=== PATIENT | female | born 1950 | race Caucasian/White ===

== ENCOUNTER → 2020-08-17 13:18 | Outpatient (CLI) | payer MEDICARE, SELFPAY ==
--- NOTE | ~2020-08-17 | MM_ITS ---
EXAMINATION: MM screening [facility] BI w ryan HISTORY: Screening mammogram TECHNIQUE: Craniocaudal and mediolateral oblique 3-D tomosynthesis images were obtained and synthetic 2-D images were generated. CAD analysis was submitted and interpreted. COMPARISON: 03/05/2019, [id number] 2017, 09/30/2015 bilateral digital screening mammogram examinations BREAST PARENCHYMAL COMPOSITION: There are scattered areas of fibroglandular density. FINDINGS: Probable bilateral .intramammary lymph nodes There is no evidence of suspicious mass, calci fication, or architectural distortion to suggest malignancy in either breast. There has been no suspi cious interval change. IMPRESSION: 1. No mammographic evidence of malignancy. 2. Recommend routine screening mammography in one year. BI-RADS Category 2: Benign finding(s). Reviewed, dictated and finalized at location A. [employer]
== END ==
PROVIDERS: PCP Internal Medicine; Visit Provider Obstetrics & Gynecology
DX: Z12.31 Encounter for screening mammogram for malignant neoplasm of breast (principal)
CPT/HCPCS: 77063; 77067

== ENCOUNTER 2021-12-07 01:32 | Day surgery (SDC) | payer MEDICARE, SELFPAY ==
[2021-11-20 15:07] VITALS: BMI 25.5
[2021-12-07 09:56] VITALS: BP 137/75; PULSE 92; RESP 18; TEMP 36.4; O2SAT 97; BMI 26.6
[2021-12-07] MEDS: LACTATED RINGERS 1,000 ML 150 ML IV CONT (09:59)
--- NOTE | 2021-12-07 10:02 | PM.HPGS ---
History of Present Illness History of Present Illness Consent: Risks, benefits, and alternatives have been discussed and questions answered. Patient agrees to proceed with procedure. Chief complaint: positive cologuard Narrative: Remedios Villanueva is a 71 year old female who was referred for colon cancer screening. Her last colonoscopy was about 11 years ago. Review of Systems Review of Systems: All systems reviewed & are unremarkable except as noted in HPI and below PMFSH Past Medical History Medical History Asthma Colon cancer screening Diabetes type 2, controlled Essential (primary) hypertension Hypothyroidism Hypothyroidism (acquired) IGT (impaired glucose tolerance) Osteoporosis Tumor of thyroid Surgical History Surgical History H/O section Family History Family History Mother Patient's mother is in good health Sibling Family history of diabetes mellitus in first degree relative Family history of malignant neoplasm of esophagus Father Patient's father is Other Hypertension Social History Social History Smoking status: Never smoker Second hand tobacco smoke exposure: No Alcohol intake: current Alcohol use details: Social Substance use: never Substance use type: does not use Living arrangements: with family Spiritual care concerns: No Meds Home Medications and Allergies Home Medications Medication Instructions Recorded Confirmed Type omega-3 fatty acids 1,000 mg 1,000 mg PO BID 08/23/20 12/07/21 History capsule (Fish Oil Concentrate) calcium carbonate 500 mg calcium 500 mg PO BID 03/09/21 12/07/21 History (1,250 mg) tablet cholecalciferol (vitamin D3) 50 See Rx Instructions .Route 06/16/21 12/07/21 Rx mcg (2,000 unit) capsule .COMPLEX #90 caps metformin 500 mg tablet See Rx Instructions .Route 06/19/21 12/07/21 Rx .COMPLEX #90 tabs hydrochlorothiazide 25 mg tablet 25 mg PO DAILY #90 tabs 08/11/21 12/07/21 Rx valsartan 320 mg tablet 320 mg PO DAILY #90 tabs 09/18/21 12/07/21 Rx sodium sul 1.479 gram-potas ch See Rx Instructions PO PER PKG DIR 11/15/21 12/07/21 Rx 0.188 gram-magnes sul 0.225 gram #24 tabs tablet (Sutab) amlodipine 5 mg tablet See Rx Instructions .Route 12/05/21 12/07/21 Rx .COMPLEX #90 tabs levothyroxine 88 mcg tablet See Rx Instructions .Route 12/05/21 12/07/21 Rx .COMPLEX #90 tabs pravastatin 40 mg tablet See Rx Instructions .Route 12/05/21 12/07/21 Rx .COMPLEX #90 tabs alprazolam 1 mg tablet 1 mg PO TID PRN anxiety #60 tabs 12/06/21 12/07/21 Rx Allergies Allergy/AdvReac Type Severity Reaction Status Date / Time No Known Allergies Verified 12/07/21 09:54 Vital Signs Vital Signs - 24 hr 12/07/21 09:56 Temperature 36.4 C Pulse Rate 92 Respiratory Rate 18 Blood Pressure 137/75 Pulse Oximetry 97 Oxygen Delivery Room Air Exam Resp: Auscultation: clear to auscultation bilaterally Cardio: Rate: regular rate Rhythm: regular rhythm GI: GI Palp: Yes Soft to palpation and No Tenderness to palpation present (GI) Assessment and Plan Assessment and plan (1) Colon cancer screening: Code(s): Z12.11 - Encounter for screening for malignant neoplasm of colon Status: Acute Assessment and Plan: Colonoscopy with possible biopsy or polypectomy or cautery or injection of substances.
[2021-12-07 10:10] LABS: Glucose Point of Care 118 mg/dl (65-105)
--- NOTE | 2021-12-07 10:17 | WPDANESEPPF ---
Anes - Initial Pre Proc Eval Procedure: Operation Date: 12/07/21 11:00 Proposed Procedures p Colonoscopy - Roge Ritchie MD Date/Time: 12/07/21 10:17 Surgeon: Roge Ritchie MD Pre Op Diagnosis: positive cologuard Patient Data Age: 71 Gender: F Height: 1.55 m Weight: 63.8 kg Last Vital Signs Temp 36.4 C 12/07/21 09:56 Pulse 92 12/07/21 09:56 Resp 18 12/07/21 09:56 BP 137/75 12/07/21 09:56 Pulse Ox 97 12/07/21 09:56 O2 Del Method Room Air 12/07/21 09:56 Allergies Allergy/AdvReac Type Severity Reaction Status Date / Time No Known Allergies Verified 12/07/21 09:54 Home Medications Medication Instructions Recorded Confirmed Type omega-3 fatty acids 1,000 mg 1,000 mg PO BID 08/23/20 12/07/21 History capsule (Fish Oil Concentrate) calcium carbonate 500 mg calcium 500 mg PO BID 03/09/21 12/07/21 History (1,250 mg) tablet cholecalciferol (vitamin D3) 50 See Rx Instructions .Route 06/16/21 12/07/21 Rx mcg (2,000 unit) capsule .COMPLEX #90 caps metformin 500 mg tablet See Rx Instructions .Route 06/19/21 12/07/21 Rx .COMPLEX #90 tabs hydrochlorothiazide 25 mg tablet 25 mg PO DAILY #90 tabs 08/11/21 12/07/21 Rx valsartan 320 mg tablet 320 mg PO DAILY #90 tabs 09/18/21 12/07/21 Rx sodium sul 1.479 gram-potas ch See Rx Instructions PO PER PKG DIR 11/15/21 12/07/21 Rx 0.188 gram-magnes sul 0.225 gram #24 tabs tablet (Sutab) amlodipine 5 mg tablet See Rx Instructions .Route 12/05/21 12/07/21 Rx .COMPLEX #90 tabs levothyroxine 88 mcg tablet See Rx Instructions .Route 12/05/21 12/07/21 Rx .COMPLEX #90 tabs pravastatin 40 mg tablet See Rx Instructions .Route 12/05/21 12/07/21 Rx .COMPLEX #90 tabs alprazolam 1 mg tablet 1 mg PO TID PRN anxiety #60 tabs 12/06/21 12/07/21 Rx Laboratory Tests 12/07/21 10:08 POC Capillary Glucose 118 mg/dl H mg/dl (65-105) Patient hx anesthesia problems: none Family hx anesthesia problems: none Results Review: All pre-operative results and documents have been reviewed as part of the pre-operative evaluation. REPLACED BY [facility] Past Medical History Medical History Asthma Colon cancer screening Diabetes type 2, controlled Essential (primary) hypertension Hypothyroidism Hypothyroidism (acquired) IGT (impaired glucose tolerance) Osteoporosis Tumor of thyroid Surgical History Surgical History H/O section Family History Family History Mother Patient's mother is in good health Sibling Family history of diabetes mellitus in first degree relative Family history of malignant neoplasm of esophagus Father Patient's father is Other Hypertension Social History Social History Smoking status: Never smoker Second hand tobacco smoke exposure: No Alcohol intake: current Alcohol use details: Social Substance use: never Substance use type: does not use Living arrangements: with family Spiritual care concerns: No Anes - Eval Final PreProcedure Day of Procedure 12/07/21 10:17 Patient weight: overweight Heart: regular rate and rhythm Lungs: clear to auscultation Airway: Mallampati scale class II Neurological: alert and oriented Last oral intake: >/= 8 hours ASA classification: III Emergent: no Anesthetic plan: proceed Anesthesia type and monitoring: general GIVS and standard monitoring Results Review: All pre-operative results and documents have been reviewed as part of the pre-operative evaluation. Informed Consent: The patient's anesthetic plan and its attendant risks and benefits were discussed with the patient/family/POA. Questions were solicited and answers provided to the satisfaction of the patient/family/POA.
[2021-12-07 11:00] VITALS: BP 89/56; PULSE 73; RESP 18; O2SAT 97
[2021-12-07 11:10] VITALS: BP 107/57; PULSE 79; RESP 18; O2SAT 98
[2021-12-07 11:20] VITALS: BP 114/73; PULSE 74; RESP 19; O2SAT 99
== END 2021-12-07 11:31 | disposition home or self-care (01) ==
PROVIDERS: PCP Internal Medicine; Visit Provider Internal Medicine Gastroenterology
PROC: 0DJD8ZZ Inspection of Lower Intestinal Tract, Via Natural or Artificial Opening Endoscopic (ICD-10-PCS; CPT 45378; principal; 2021-12-07 11:00)
DX: Z12.11 Encounter for screening for malignant neoplasm of colon (principal); E89.0 Postprocedural hypothyroidism; K57.30 Diverticulosis of large intestine without perforation or abscess without bleeding; R19.5 Other fecal abnormalities; Z79.84 Long term (current) use of oral hypoglycemic drugs; J45.909 Unspecified asthma, uncomplicated; E11.9 Type 2 diabetes mellitus without complications; I10 Essential (primary) hypertension; M81.0 Age-related osteoporosis without current pathological fracture
CPT/HCPCS: G0121; 82948; J2704; J7120

== ENCOUNTER → 2022-04-03 11:59 | Outpatient (CLI) | payer MEDICARE, SELFPAY ==
--- NOTE | ~2022-04-03 | DEXA_ITS ---
Bone Density Report Name: LEDA FITCH Age: 72 Sex: Female Ethnicity: White Date of : 1950 Indication: postmenopausal; screening for osteoporosis; Referring Provider: López Moran Study: Bone densitometry was performed. Exam Date: April 03, 2022 Accession number: [id number] Bone Density: Region BMD T-score Z-score Classification AP Spine (L1-L4) 1.194 1.3 3.5 Normal Femoral Neck (Left) 0.657 -1.7 0.1 Osteopenia Total Hip (Left) 0.926 -0.1 1.4 Normal Femoral Neck (Right) 0.721 -1.2 0.6 Osteopenia Total Hip (Right) 0.900 -0.3 1.2 Normal Total Hip Mean 0.913 -0.2 1.3 Normal World Health Organization criteria for BMD impression classify patients as: Normal (T-score at or above -1.0), Osteopenia (T-score between -1.0 and -2.5), or Osteoporosis (T-score at or below -2.5). 10-year Fracture Risk(1): Major Osteoporotic Fracture 10% Hip Fracture 1.7% Reported Risk Factors: [place] (), Neck BMD=0.657, BMI=27.5 (1) FRAX(R) Version 3.08. Fracture probability calculated for an untreated patient. Fracture probability may be lower if the patient has received treatment. Previous Exams: Region Exam Age BMD T-score BMD Change BMD Change Date g/cm2 vs Baseline vs Previous AP Spine(L1-L4) 04/03/2022 72 1.194 1.3 0.282* 0.215* 06/09/2013 63 0.979 -0.6 0.067* 0.067* 04/25/2011 61 0.912 -1.2 0.000 0.000 12/13/2008 58 0.912 -1.2 Total Hip(Left) 04/03/2022 72 0.926 -0.1 0.027 0.003 06/09/2013 63 0.924 -0.2 0.024 0.079* 04/25/2011 61 0.844 -0.8 -0.055* -0.055* 12/13/2008 58 0.899 -0.3 Total Hip(Right) 04/03/2022 72 0.900 -0.3 0.054* 0.031* 06/09/2013 63 0.869 -0.6 0.023 0.029* 04/25/2011 61 0.840 -0.8 -0.006 -0.006 12/13/2008 58 0.846 -0.8 *Denotes significance at 95% confidence level, LSC for AP Spine = 0.022 g/cm2, LSC for Total Hip = 0.027 g/cm2 Clinical Information Provided by Patient: Has used the following medications: Vitamin D, Calcium Patient maximum height was 61.2 Menopause Age: 42 Drinks caffeinated beverages Onset of menses at age 16 Number of children 2 Impression: The patient has low bone mass, based on the Left Femoral Neck T-score. The patient has an estimated ten-year risk of hip fra
== END ==
PROVIDERS: PCP Internal Medicine; Visit Provider Internal Medicine
DX: M81.0 Age-related osteoporosis without current pathological fracture (principal); M85.852 Other specified disorders of bone density and structure, left thigh; M85.851 Other specified disorders of bone density and structure, right thigh
CPT/HCPCS: 77080

== ENCOUNTER → 2022-04-09 13:43 | Outpatient (CLI) | payer MEDICARE, SELFPAY ==
--- NOTE | ~2022-04-09 | MM_ITS ---
EXAMINATION: MM screening [facility] BI w ryan HISTORY: Screening TECHNIQUE: Craniocaudal and mediolateral oblique 3-D tomosynthesis images were obtained and synthetic 2-D images were generated. CAD analysis was submitted and interpreted. COMPARISON: Comparison to multiple prior studies sequentially, with oldest reviewed study dated 09/2014. BREAST PARENCHYMAL COMPOSITION: There are scattered areas of fibroglandular density. FINDINGS: There is no evidence of suspicious mass, calcification, or architectural distortion to sugg est malignancy in either breast. There has been no suspicious interval change. IMPRESSION: 1. No mammographic evidence of malignancy. 2. Recommend routine screening mammography in one year. BI-RADS Category 1: Negative Reviewed, dictated and finalized at location A.
== END ==
PROVIDERS: PCP Internal Medicine; Visit Provider Obstetrics & Gynecology
DX: Z12.31 Encounter for screening mammogram for malignant neoplasm of breast (principal)
CPT/HCPCS: 77063; 77067

== ENCOUNTER 2023-08-22 12:32 | Outpatient (CLI) | payer MEDICARE, SELFPAY ==
--- NOTE | ~2023-08-22 | MM_ITS ---
EXAMINATION: MM screening [facility] BI w ryan HISTORY: Screening mammogram TECHNIQUE: Craniocaudal and mediolateral oblique 3-D tomosynthesis images were obtained and synthetic 2-D images were generated. CAD analysis was submitted and interpreted. COMPARISON: 04/09/2022, 08/17/2020 bilateral screening mammogram examinations BREAST PARENCHYMAL COMPOSITION: There are scattered areas of fibroglandular density. FINDINGS: There is no evidence of suspicious mass, calcification, or architectural distortion to sugg est malignancy in either breast. There has been no suspicious interval change. IMPRESSION: 1. No mammographic evidence of malignancy. 2. Recommend routine screening mammography in one year. BI-RADS Category 1: Negative Reviewed, dictated and finalized at location A.
== END 2023-08-22 12:33 ==
PROVIDERS: PCP Obstetrics & Gynecology; Visit Provider Obstetrics & Gynecology
DX: Z12.31 Encounter for screening mammogram for malignant neoplasm of breast (principal)
CPT/HCPCS: 77063; 77067

== ENCOUNTER 2023-10-09 11:02 | Outpatient (CLI) | payer MEDICARE, SELFPAY | END 2023-10-09 11:03 | LOC: MICIMG 11:04 | PROVIDERS: PCP Family Medicine; Visit Provider Family Medicine | DX: M79.672 Pain in left foot (principal) | CPT/HCPCS: 73630 ==

== ENCOUNTER 2024-10-22 12:17 | Outpatient (CLI) | payer MEDICARE, SELFPAY ==
--- NOTE | ~2024-10-22 | XR_ITS ---
Right Knee Technique: AP, lateral, and sunrise views were obtained. Clinical History: Pain Findings: No fracture or dislocation is seen. Osseous alignment is anatomic. There is moderate degene rative change of the lateral compartment. There is moderate patellofemoral compartment degenerative c hange.. Soft tissues are unremarkable. No joint effusion is seen. Impression: Degenerative changes, as above. Reviewed, dictated and finalized at location M. Impression: Degenerative changes, as above.
== END 2024-10-22 12:18 | disposition home or self-care (01) ==
LOC: MICIMG 12:17
PROVIDERS: PCP Family Medicine; Visit Provider Family Medicine
DX: M17.11 Unilateral primary osteoarthritis, right knee (principal)
CPT/HCPCS: 73562

== ENCOUNTER 2025-01-05 10:27 | Outpatient (CLI) | payer MEDICARE, SELFPAY ==
--- NOTE | ~2025-01-05 | MR_ITS ---
MRI of the right knee Clinical history: Pain Technique: Coronal proton density and proton density-weighted images, sagittal proton-density and T2 fat-sat images, and axial proton-density fat-saturated images were acquired. Findings: Anterior and posterior cruciate ligaments are intact. Medial collateral ligament and the la teral collateral ligament complex are intact. Popliteus tendon is intact. There is complex tearing of the anterior horn of lateral meniscus which is relatively macerated appea keven. Suspected subtle horizontal tear of the posterior horn of the medial meniscus. 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 There is extensive grade IV chondromalacia the fe moral trochlea. There is patchy mild to moderate chondral malacia the medial lateral compartment. The re are extensive tricompartmental osteophytes. Extensor mechanism is intact. Small joint effusion present. Moderate Fuller's cyst present. Impression: Complex tearing of the anterior horn of the lateral meniscus, which is largely macerated. Suspected subtle horizontal tear of the posterior horn of the medial meniscus. Advanced tricompartmental degenerative change, worst in the patellofemoral compartment. Moderate Fuller's cyst. Reviewed, dictated and finalized at [facility]. Impression: Complex tearing of the anterior horn of the lateral meniscus, which is largely macerated. Suspected subtle horizontal tear of the posterior horn of the medial meniscus. Advanced tricompartmental degenerative change, worst in the patellofemoral comp artment. Moderate Fuller's cyst.
== END 2025-01-05 10:28 | disposition home or self-care (01) ==
LOC: MICIMG 10:28
PROVIDERS: PCP Family Medicine; Visit Provider Family Medicine
DX: M71.21 Synovial cyst of popliteal space [Baker], right knee (principal); M17.11 Unilateral primary osteoarthritis, right knee; S83.271A Complex tear of lateral meniscus, current injury, right knee, initial encounter; X58.XXXA Exposure to other specified factors, initial encounter
CPT/HCPCS: 73721